=== PATIENT | female | born 1995 | race Two or more races ===

== ENCOUNTER 2024-03-28 15:01 | Emergency (ER) | payer MEDICAID, SELFPAY ==
[2024-03-28 15:16] VITALS: BP 137/80; PULSE 98; RESP 16; TEMP 36.6; O2SAT 100
--- NOTE | 2024-03-28 15:27 | ED.SKABFB ---
HPI - Skin/Abscess/Foreign Bdy General Chief complaint: Skin/Abscess/Foreign Body Stated complaint: bumps on legs Time Seen by Provider: 03/28/24 15:03 History of Present Illness HPI narrative: Patient presents with insect bite to right leg. Patient states she has been applying clotrimazole cream and [id number] steroid cream with minimal results. Patient states this has been an ongoing problem for over 4 weeks. Related Data Allergies Allergy/AdvReac Type Severity Reaction Status Date / Time No Known Allergies Allergy Verified 03/28/24 15:21 Review of Systems Review of Systems: CONSTITUTIONAL: Denies fever, chills, or sweats. EYES: Denies visual changes, redness, or discharge. ENT: Denies rhinorrhea, congestion, sore throat, or otalgia. CARDIOVASCULAR: Denies chest pain, palpitations, or edema. RESPIRATORY: Denies cough or dyspnea. GASTROINTESTINAL: Denies abdominal pain, nausea, vomiting, or diarrhea. GENITOURINARY: Denies dysuria or hematuria. SKIN: Denies rash or itching. MUSCULOSKELETAL: Denies back pain, joint pain, or myalgia. NEUROLOGIC: Denies headache, numbness, or weakness. PSYCHIATRIC: Denies anxiety or depression. PMFSH Comments At time of signature, agree with nursing past medical, surgical, social and family history. There is no relevant family history pertinent to the presenting complaint Exam Narrative: GENERAL: Well-appearing, well-nourished, and in no acute distress. HEAD: Normocephalic, atraumatic. EYES: PERRLA and EOMI. ENT: Nares clear, no rhinorrhea or epistaxis. Mucous membranes moist. NECK: Supple. CHEST: Clear to auscultation. No respiratory distress. HEART: Regular rate and rhythm. No murmur heard. Normal peripheral pulses. ABDOMEN: Soft, nontender, nondistended, normal active bowel sounds. EXTREMITIES: Normal range of motion. No edema. Multiple areas various shapes and sizes consistent with insect bites to right lower extremity, no concern for any infection. SKIN: Warm, dry, no rash. NEURO: No focal deficits. Alert and oriented x3. Tian Coma Scale Eye Opening: Spontaneous 4 Tian Coma Scale Motor: Obeys Commands 6 Tian Coma Scale Verbal: Oriented 5 Tian Coma Scale Total 15 Course Course Level of Care: Express Care Visit Vital Signs Vital signs: Vital Signs Temperature 36.6 C 03/28/24 15:16 Pulse Rate 98 03/28/24 15:16 Respiratory Rate 16 03/28/24 15:16 Blood Pressure 137/80 03/28/24 15:16 Pulse Oximetry 100 03/28/24 15:16 Oxygen Delivery Room Air 03/28/24 15:16 Temperature 36.6 C 03/28/24 15:16 Pulse Rate 98 03/28/24 15:16 Respiratory Rate 16 03/28/24 15:16 Blood Pressure 137/80 03/28/24 15:16 Pulse Oximetry 100 03/28/24 15:16 Oxygen Delivery Room Air 03/28/24 15:16 Discharge Plan Discharge Clinical Impression: Insect bites Patient Disposition: Hospice - Home Condition: Stable Additional Instructions: Wash area with warm soapy water and antibacterial soap Apply ointment as prescribed Take medication by mouth as prescribed with food until gone Follow-up with primary care provider in 2-3 days for re-evaluation If any new or worsening symptoms please go to ER immediately further evaluation treatment Prescriptions: New cetirizine [Zyrtec] 10 mg tablet 10 mg PO DAILY Qty: 14 0RF prednisone 20 mg tablet 40 mg PO DAILY 5 Days Qty: 10 0RF mupirocin 2 % ointment 1 applic TOPICAL TID 7 Days Qty: 15 0RF Follow-up/Referrals: UNKNOWN,DOCTOR [Non-Staff] -
== END 2024-03-28 15:45 | disposition home or self-care (01) ==
PROVIDERS: Emergency Provider Nurse Practitioner Family
DX: S80.861A Insect bite (nonvenomous), right lower leg, initial encounter (principal); W57.XXXA Bitten or stung by nonvenomous insect and other nonvenomous arthropods, initial encounter; K21.9 Gastro-esophageal reflux disease without esophagitis; E10.40 Type 1 diabetes mellitus with diabetic neuropathy, unspecified; E03.9 Hypothyroidism, unspecified
CPT/HCPCS: 99213; G0463

== ENCOUNTER 2024-06-04 12:01 | Emergency (ER) | payer OTHER, SELFPAY ==
[2024-06-04 12:10] VITALS: BP 136/83; PULSE 99; RESP 16; TEMP 36.8; O2SAT 99
[2024-06-04 12:29] VITALS: BP 136/83; PULSE 99; RESP 16; TEMP 36.8; O2SAT 99
--- NOTE | 2024-06-04 12:38 | ED.SKABFB ---
HPI - Skin/Abscess/Foreign Bdy General Chief complaint: Skin/Abscess/Foreign Body Stated complaint: Rash/Skin Sore Time Seen by Provider: 06/04/24 12:56 Source: patient and RN notes reviewed Mode of arrival: ambulatory Limitations: no limitations History of Present Illness HPI narrative: 28-year-old female presents with concern for recurring red bumps on her legs since this summer. She reports they are itchy, eventually turn into scabs. Reports occasionally they will have white drainage. She reports she has tried prescribed mupirocin cream without relief. She also reports she has got a very itchy spot on her ankle that appeared after she rubbed it against the plant. MD complaint: rash Related Data Home Medications Medication Instructions Recorded Confirmed aripiprazole 2 mg tablet 2 mg PO DAILY 03/28/24 06/04/24 duloxetine 20 mg capsule,delayed 20 mg PO BID 03/28/24 06/04/24 release sprinkle gabapentin 300 mg capsule 300 mg PO TID 03/28/24 06/04/24 insulin lispro 100 unit/mL 1 sliding scale dose subcut 03/28/24 06/04/24 subcutaneous pen USEASDIRECTD levothyroxine 75 mcg tablet 75 mcg PO DAILY 03/28/24 06/04/24 meloxicam 15 mg tablet 15 mg PO DAILY 03/28/24 06/04/24 subcutaneous insulin pump (iLet 03/28/24 03/28/24 Insulin Pump) Allergies Allergy/AdvReac Type Severity Reaction Status Date / Time No Known Allergies Allergy Verified 03/28/24 15:21 Review of Systems Review of Systems: CONSTITUTIONAL: Denies malaise, chills, sweats, or fever. EYES: Denies redness, or discharge. ENT: Denies rhinorrhea, congestion, swollen lips, swollen tongue CARDIOVASCULAR: Denies chest pain, palpitations, or edema. RESPIRATORY: Denies cough or dyspnea. GASTROINTESTINAL: Denies abdominal pain, nausea, vomiting SKIN: Reports chronic itchy rash on her legs MUSCULOSKELETAL: Denies joint pain or myalgia. NEUROLOGIC: Denies headache. All systems reviewed & are unremarkable except as noted in HPI and below PMFSH Comments At time of signature, agree with nursing past medical, surgical, social and family history. There is no relevant family history pertinent to the presenting complaint Exam Narrative: GENERAL: Well-appearing, well-nourished, and in no acute distress. HEAD: Normocephalic, atraumatic. EYES: PERRLA, conjunctivae clear, and EOMI. ENT: Mucous membranes moist. Oropharynx without edema, erythema or lesions. NECK: Supple. No lymphadenopathy CHEST: Clear to auscultation. No respiratory distress. HEART: Regular rate and rhythm. SKIN: Warm, dry. Erythematous papules noted to the general bilateral lower extremities and bilateral axilla, old scabs and scars noted in both areas as well. Occasional papules have whiteheads NEURO: Alert and oriented x3. PSYCH: Normal mood and affect Course Course Emergency Course: Patient is aware of diagnosis, understands and agrees to treatment plan. Anticipatory guidance given. Patient agrees to follow-up as directed and is aware of reasons to seek care at the emergency department. Portions of this record may have been created with voice recognition software Level of Care: Express Care Visit Vital Signs Vital signs: Vital Signs Temperature 98.2 F 06/04/24 12:10 Pulse Rate 99 06/04/24 12:10 Respiratory Rate 16 06/04/24 12:10 Blood Pressure 136/83 06/04/24 12:10 Pulse Oximetry 99 06/04/24 12:10 Oxygen Delivery Room Air 06/04/24 12:10 Temperature 98.2 F 06/04/24 12:29 Pulse Rate 99 06/04/24 12:29 Respiratory Rate 16 06/04/24 12:29 Blood Pressure 136/83 06/04/24 12:29 Pulse Oximetry 99 06/04/24 12:29 Oxygen Delivery Room Air 06/04/24 12:29 Reviewed. MDM - Skin/Abscess/Foreign Bdy MDM Narrative Medical decision making narrative: Does not appear at this time to be erythema multiforme, bullous, SJS, TEN; no evidence at this time to suggest RMSF, endocarditis or Lyme disease; patient looks well, nontoxic and is tolerating oral
== END 2024-06-04 13:09 | disposition home or self-care (01) ==
PROVIDERS: Emergency Provider Nurse Practitioner
DX: L73.9 Follicular disorder, unspecified (principal); K21.9 Gastro-esophageal reflux disease without esophagitis; M79.7 Fibromyalgia; E10.40 Type 1 diabetes mellitus with diabetic neuropathy, unspecified; E03.9 Hypothyroidism, unspecified
CPT/HCPCS: 99213; G0463